=== PATIENT | female | born 1990 | race Caucasian/White ===

== ENCOUNTER 2022-09-06 04:38 | Inpatient (IN) | payer MEDICAID ==
[~2022-09-06] VITALS: Ht 165.1 cm; Wt 74.8 kg
[2022-09-06] MEDS ORDERED: PV W1TAB21 MT (05:06)
[2022-09-06] MEDS ORDERED: OXYTOCIN 30 UNITS/500ML NS PMX 500 ML IV ONE (05:15)
[2022-09-06] MEDS ORDERED: LIDOCAINE HCL 1% 20ML VIAL (Pyxis) INJ INFIL ONE (05:15)
[2022-09-06] MEDS ORDERED: NALOXONE HCL 0.4 MG/ML 1ML VIAL IM PRN (06:15)
[2022-09-06] MEDS ORDERED: LIDOCAINE HCL 1% 20ML VIAL (Pyxis) INJ INFIL SCH (06:15)
[2022-09-06] MEDS ORDERED: CARBOPROST TROMETHAMINE 250 MCG/ML AMPUL IM PRN (06:15)
[2022-09-06] MEDS ORDERED: OXYTOCIN 30 UNITS/500ML NS PMX 500 ML IV SCH (06:15)
[2022-09-06] MEDS ORDERED: METHYLERGONOVINE MALEATE 0.2 MG/ML IM PRN (06:15)
[2022-09-06] MEDS ORDERED: LACTATED RINGERS 1,000 ML IV SCH (06:15)
[2022-09-06] MEDS: PRENATAL VIT/FE FUMARATE/FA TABLET PO SCH (06:37)
[2022-09-06] MEDS ORDERED: IBUPROFEN 400MG TABLET PO PRN (07:00)
[2022-09-06] MEDS ORDERED: RHO(D) IMMUNE GLOBULIN 300 MCG/SYR IM PRN (07:00)
[2022-09-06] MEDS ORDERED: BENZOCAINE/LANOLIN/ALOE VERA SPRAY TOP PRN (07:00)
[2022-09-06] MEDS ORDERED: IBUPROFEN 800MG TABLET PO PRN (07:00)
[2022-09-06 07:40] LABS: BASOPHILS % 0.2 % (0.0-2.0); HEMATOCRIT. 36.2 % (36.0-48.0); HEMOGLOBIN. 12.1 g/dL (12.0-16.0); LYMPHOCYTES % 11.3 % (20.0-50.0); MONOCYTES % 3.1 % (2.0-8.0); NEUTROPHILS % 85.4 % (40.0-76.0); PLATELET 242 x1000/uL (130-400); RED BLOOD CELL COUNT 4.64 mill/uL (4.2-5.4); RED CELL DISTRIBUTION WIDTH 15.4 % (11.6-14.6)
[2022-09-06 08:17] LABS: INR 0.9; PARTIAL THROMBOPLASTIN TIME 28.8 sec (23.4-31.0); PROTHROMBIN TIME 9.8 sec (9.6-11.0)
[2022-09-06 08:32] LABS: CLARITY URINE CLOUDY (CLEAR); COLOR URINE YELLOW (YELLOW); KETONES URINE NEGATIVE (NEGATIVE); LEUKOCYTE ESTERASE URINE TRACE (NEGATIVE); NITRITE URINE NEGATIVE (NEGATIVE); OCCULT BLOOD URINE 2+ (NEGATIVE); PH URINE 5.5 (4.5-8.0); PROTEIN URINE TRACE (NEGATIVE); SPECIFIC GRAVITY URINE 1.023 (1.005-1.030); UROBILINOGEN URINE 0.2 E.U./dL (0.2-1.0)
[2022-09-06 08:46] LABS: HEPATITIS B SURFACE ANTIGEN NEGATIVE
[2022-09-06 10:16] LABS: *AMPHETAMINES SCREEN URINE NEGATIVE (NEGATIVE); *BARBITURATES SCREEN URINE NEGATIVE (NEGATIVE); *BENZODIAZEPINES SCREEN URINE NEGATIVE (NEGATIVE); *COCAINE SCREEN URINE NEGATIVE (NEGATIVE); CANNABINOID URINE SCREEN NEGATIVE (NEGATIVE); METHADONE URINE SCREEN NEGATIVE (NEGATIVE); OPIATES URINE SCREEN NEGATIVE (NEGATIVE); PHENCYCLIDINE URINE SCREEN NEGATIVE (NEGATIVE)
[2022-09-06 11:00] VITALS: BP 111/70; PULSE 144; RESP 48; TEMP 98.2
[2022-09-06 11:01] VITALS: PULSE 98; RESP 18; TEMP 98.7
[2022-09-06 16:30] VITALS: BP 111/77; PULSE 95; RESP 18; TEMP 98.2
[2022-09-06 20:00] VITALS: BP 126/77; PULSE 89; RESP 18; TEMP 98.3; O2SAT 98
[2022-09-06] MEDS ORDERED: IBUPROFEN 600MG TABLET PO PRN (22:59)
[2022-09-07 04:00] VITALS: BP 114/70; PULSE 95; RESP 19; TEMP 98.4
[2022-09-07 06:17] LABS: BASOPHILS % 0.4 % (0.0-2.0); EOSINOPHILS % 0.6 % (0.0-5.0); HEMATOCRIT. 29.3 % (36.0-48.0); LYMPHOCYTES % 19.7 % (20.0-50.0); MEAN CORPUSCULAR HEMOGLOBIN 26.8 pg (28.0-32.0); MEAN PLATELET VOLUME 8.2 fl (7.4-10.4); NEUTROPHILS % 71.3 % (40.0-76.0); PLATELET 212 x1000/uL (130-400); RED BLOOD CELL COUNT 3.75 mill/uL (4.2-5.4); RED CELL DISTRIBUTION WIDTH 15.8 % (11.6-14.6)
[2022-09-07 08:00] VITALS: BP 100/66; PULSE 99; RESP 18; TEMP 98.6; O2SAT 98
[2022-09-07] MEDS: FERROUS SULFATE 325MG TABLET PO SCH ×3 (09:50→17:30)
[2022-09-07] MEDS: PRENATAL VIT/FE FUMARATE/FA TABLET PO SCH (09:50)
[2022-09-07 16:00] VITALS: BP 107/63; PULSE 83; RESP 18; TEMP 98.7
[2022-09-07 20:00] VITALS: BP 116/84; PULSE 98; RESP 19; TEMP 98.5; O2SAT 98
[2022-09-08 04:00] VITALS: BP 110/78; PULSE 82; RESP 18; TEMP 98.3
[2022-09-08 08:00] VITALS: BP 102/66; PULSE 86; RESP 18; TEMP 99.8; O2SAT 98
[2022-09-08] MEDS ORDERED: IBUP-2029 PO (09:03)
[2022-09-08] MEDS ORDERED: FERR-63 PO (09:03)
== END 2022-09-08 12:15 | disposition home or self-care (01) | DRG 560 ==
LOC: 8 EST LDRP 04:38 → OBSVTOIN 04:38 → 8EST 09:20
PROVIDERS: ADMIT Obstetrics & Gynecology; ATTEND Obstetrics & Gynecology
PROC: 10D07Z6 Extraction of Products of Conception, Vacuum, Via Natural or Artificial Opening (ICD-10-PCS; principal; 2022-09-06)
PROC: 0HQ9XZZ Repair Perineum Skin, External Approach (ICD-10-PCS; 2022-09-06)
DX: O69.81X0 Labor and delivery complicated by cord around neck, without compression, not applicable or unspecified (principal); Z37.0 Single live birth; O70.0 First degree perineal laceration during delivery; O99.02 Anemia complicating childbirth; Z3A.39 39 weeks gestation of pregnancy
CPT/HCPCS: 36415; 76805; 80305; 81003; 85025; 86592; 86593; 86703; 86762; 86780; 86850; 86900; 87340; 99281; J3490; J7120; J2590